=== PATIENT | male | born 1960 | race Hispanic/Latino ===

== ENCOUNTER → 2018-05-17 | Outpatient (CLI) | payer BC | END | disposition home or self-care (01) | LOC: SLP 20:25 | PROVIDERS: ATTEND Family Medicine | DX: G47.30 Sleep apnea, unspecified (principal) | CPT/HCPCS: 95810 ==

== ENCOUNTER → 2018-05-25 | Outpatient (CLI) | payer BC | END | disposition home or self-care (01) | LOC: SLP 20:20 | PROVIDERS: ATTEND Family Medicine | DX: G47.30 Sleep apnea, unspecified (principal) | CPT/HCPCS: 95811 ==

== ENCOUNTER → 2023-01-22 | Outpatient (CLI) | payer BC | END | disposition home or self-care (01) | LOC: RAH 10:52 | PROVIDERS: ATTEND Family Medicine | DX: I08.0 Rheumatic disorders of both mitral and aortic valves (principal); I11.9 Hypertensive heart disease without heart failure | CPT/HCPCS: 93306 ==